=== PATIENT | male | born 1975 | race Hispanic/Latino ===

== ENCOUNTER 2024-06-26 05:18 | Emergency (ER) | payer MEDICARE ==
[2024-06-26] MEDS ORDERED: Ketorolac Tromethamine 30 MG (1 mL) VIAL ONE (05:38)
[2024-06-26] MEDS ORDERED: Ondansetron PF 4 MG/2 ML Vial ONE ×2 (05:38→19:07)
[2024-06-26] MEDS ORDERED: Aspirin Chewable 81 MG TAB ONE (05:39)
[2024-06-26 05:48] LABS: #Basophils 0.05 10x3/uL (0.0-0.2); #Eosinophils 0.12 10x3/uL (0.0-0.5); #Neutrophils 8.05 10x3/uL (1.5-8.4); %Basophils 0.4 % (0.0-2.0); %Lymphocytes 22.4 % (18.0-47.0); %Monocytes 6.1 % (0.0-10.0); %Neutrophils 69.8 % (40.0-75.0); Hematocrit 44.4 % (38.8-50.0); Hemoglobin 15.2 g/dL (13.5-17.5); Mean Corpuscular HGB CONC 34.2 g/dL (32.0-36.0); Mean Corpuscular Hemoglobin 30.2 pg (27.0-33.0); Mean Corpuscular Volume 88.1 fL (81.2-95.1); Mean Platelet Volume 10.2 fL (7.4-10.4); Platelet Count 181 10x3/uL (150-450); RBC Distribution Width 12.6 % (11.5-14.5); Red Blood Cell (RBC) Count 5.04 10x6/uL (4.32-5.72); White Blood Cell (WBC) Count 11.5 10x3/uL (3.5-10.5)
[2024-06-26 06:12] LABS: ALT (SGPT) 89 U/L (8-55); AST (SGOT) 46 U/L (5-34); Albumin 3.9 g/dL (3.5-5.0); Alkaline Phosphatase 47 U/L (40-110); Anion Gap 16 mmol/L (10-20); BUN (Urea Nitrogen) 22 mg/dL (8.9-20.6); Bilirubin, Total 1.3 mg/dL (0.2-1.2); Calc. Creatinine Clearance 0 mL/min (70-130); Calcium 8.7 mg/dL (7.8-10.44); Carbon Dioxide 19 mmol/L (22-29); Chloride 108 mmol/L (98-107); Estimated GFR 106; Globulin 2.5 g/dL (2.4-3.5); Glucose 134 mg/dL (70-105); Lipase 21 U/L (8-78); Protein, Total 6.4 g/dL (6.0-8.3); Sodium 139 mmol/L (136-145)
[2024-06-26 06:19] LABS: Troponin I 0.034 ng/mL (< 0.028)
[2024-06-26] MEDS ORDERED: Famotidine/PF 20 mg/2ml Vial ONE (10:30)
[2024-06-26 11:24] LABS: Troponin I 0.026 ng/mL (< 0.028)
[2024-06-26] MEDS ORDERED: Iopamidol 370 76% 100 ML VIAL ONE (12:09)
[2024-06-26] MEDS ORDERED: Morphine 4 MG/ML VIAL ONE (15:22)
[2024-06-26 16:10] LABS: Troponin I 0.031 ng/mL (< 0.028)
== END 2024-06-26 19:52 | disposition short-term general hospital (02) ==
LOC: CSHERS 05:18
DX: I11.0 Hypertensive heart disease with heart failure (principal); I50.9 Heart failure, unspecified; K29.80 Duodenitis without bleeding; R11.2 Nausea with vomiting, unspecified; R79.89 Other specified abnormal findings of blood chemistry; E78.5 Hyperlipidemia, unspecified; Z79.82 Long term (current) use of aspirin; Z79.899 Other long term (current) drug therapy
CPT/HCPCS: 71045; 74177; 80053; 83690; 83880; 84484 ×2; 85025; 86850; 86900; 86901; 93005; 96374; 96375; 96376; 99285; J1885; J2272; J2405; J3490; 36415